=== PATIENT | male | born 2005 | race Two or more races ===

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

== ENCOUNTER 2024-08-11 21:06 | Emergency (ER) | payer OTHER ==
[~2024-08-11] VITALS: Ht 182.9 cm; Wt 76.9 kg
[2024-08-11] MEDS ORDERED: SILV1CRE82 TOP (23:12)
[2024-08-11 23:25] VITALS: BP 125/69; PULSE 62; RESP 17; TEMP 98; O2SAT 97
[2024-08-11] MEDS: SILVER SULFADIAZINE 1 % TOPICAL CREAM 50GM TOP ONE (23:45)
== END 2024-08-11 23:48 | disposition home or self-care (01) ==
LOC: ER 21:06
DX: T20.25XA Burn of second degree of scalp [any part], initial encounter (principal); X19.XXXA Contact with other heat and hot substances, initial encounter; Y93.89 Activity, other specified; Y92.89 Other specified places as the place of occurrence of the external cause; Y99.8 Other external cause status
CPT/HCPCS: 16020